=== PATIENT | female | born 1950 | race Caucasian/White ===

== ENCOUNTER → 2017-09-29 | Outpatient (CLI) | payer MEDICARE, OTHER | END | disposition home or self-care (01) | LOC: GMAJ 11:21 | PROVIDERS: ATTEND Family Medicine | DX: I10 Essential (primary) hypertension (principal) ==

== ENCOUNTER → 2017-11-27 | Outpatient (CLI) | payer MEDICARE, OTHER ==
--- NOTE | 2017-11-29 17:45 | US ---
EXAM DESCRIPTION: Soft Tissue,Head/Neck CLINICAL HISTORY: 67 years Female, THYROID NODULE COMPARISON: None. FINDINGS: The right thyroid lobe measures 5.4 cm in length. It contains multiple solid or mixed solid and cystic nodules, the largest measuring up to 1.5 cm diameter. The thyroid isthmus is not thickened. The left thyroid lobe measures 4.9 cm in length. It contains several cystic and cystic/solid nodules, the largest measuring 7 or 8 mm diameter. IMPRESSION: Bilateral thyroid nodules as detailed above, largest measuring 1.5 cm diameter in the right thyroid lobe. Ultrasound-guided biopsy of this largest nodule should be considered. At a minimum, short-term follow-up ultrasound in 3-6 months is recommended to document stability. Electronically signed by: Frankie Velazquez MD 11/29/2017 5:43 PM CDT
== END ==
LOC: US 09:00
PROVIDERS: ATTEND Family Medicine
DX: E04.1 Nontoxic single thyroid nodule (principal)

== ENCOUNTER → 2020-02-02 | Outpatient (CLI) | payer MEDICARE, OTHER ==
--- NOTE | 2020-02-06 14:22 | MAM ---
EXAM DESCRIPTION: 3D Screening BILATERAL : Digital Mammography. CLINICAL HISTORY: 69 years Female SCREEN . No complaints. No personal or family history of breast cancer. Menarche age 13. Childbirth age 23. Menopause age 47. HRT 5 or more years ago. Benign right breast biopsy.. Lifetime risk of developing breast cancer (Tyrer-Cuzick model)(%): 5.2. COMPARISON: Baseline study at this facility. No prior reports available. TECHNIQUE: Bilateral CC and MLO projection full-field images, digital tomosynthesis mammographic technique. Bilateral digital 2-D full-field MLO images. CAD available for 2-D images. FINDINGS: The breast parenchymal density pattern is: Heterogeneously dense breast tissue, which may obscure small masses. No skin thickening or nipple retraction. Biopsy site marker upper outer quadrant posterior to middle third right breast. Solitary microcalcifications. Bilateral regions of focal asymmetry versus mass density: Right breast 10:00-11:00, 4 cm from the nipple. Left axilla 9:00 position abutting the chest wall. Not associated with microcalcifications. IMPRESSION: BI-RADS CATEGORY: 0 - INCOMPLETE- Need additional imaging evaluation. RECOMMENDATIONS: FOLLOW-UP: Recall for additional imaging: Bilateral full-field 2-D and tomosynthesis images LM projection. Directed bilateral breast ultrasound of the regions of interest.. Written communication concerning the IMPRESSION and Follow-up, will be mailed to the patient and referring health care provider. Electronically signed by: Saw Nguyen MD 02/06/2020 2:20 PM CDT
== END ==
LOC: MAMMO 08:00
PROVIDERS: ATTEND Family Medicine
DX: Z12.31 Encounter for screening mammogram for malignant neoplasm of breast (principal)

== ENCOUNTER 2020-02-03 05:29 | Day surgery (SDC) | payer MEDICARE, OTHER ==
[2020-02-03] MEDS ORDERED: LACTATED RINGERS 1,000 ML ONE (06:50)
[2020-02-03] MEDS ORDERED: LIDOCAINE 1% 10 ML VIAL INJ ONE (07:00)
[2020-02-03] MEDS ORDERED: PROPOFOL 200 MG/20 ML VIAL IV ONE (07:00)
[2020-02-03 08:43] VITALS: O2SAT 100
--- NOTE | 2020-02-03 10:53 | OP ---
DATE OF PROCEDURE: 02/03/20 PREOPERATIVE DIAGNOSIS: 1. Screening colonoscopy. POSTOPERATIVE DIAGNOSIS: 1. Colonic polyps. PROCEDURE: 1. Colonoscopy with forceps biopsy excision x4. a. Small, flat polyp in distal transverse colon. b. Flat polyp at approximately 20 cm. c. Rectal polyp at 10 cm, 2.5 mm. d. Anal polyp, 3 mm. SURGEON: Alfonso Washington MD ANESTHESIA: General. PROCEDURE: General anesthesia was induced. Digital rectal exam was normal. The colonoscope was then passed. There was minor looping in this very thin patient. This was taken care of with gentle pressure. We ultimately reached the cecum identified by the appendiceal orifice and ileocecal valve. Upon withdrawal, the cecum and ascending colon appeared normal and transverse colon was normal until the distal transverse colon we identified a flat appearing polyp, certainly not easy to see, but recognized, so it was excised. Upon further withdrawal, at 20 cm was a similar appearing flat polyp that was also excised. At 10 cm in the upper rectum, a more traditional polyp was seen, about 2.5 mm. This was completely excised. On retroflexion, a polyp about 1.5 cm in, possibly 2 cm, was excised as well. It was over 2.5 mm. Minor oozing from that, but no bleeding. The patient tolerated the procedure. We had desufflated the abdomen on withdrawal. She was awakened and taken to Recovery to be discharged. #[id number] cc: Alfonso Clarke MD [facility]
[2020-02-03 11:56] VITALS: BP 141/55; TEMP 97.3
== END 2020-02-03 11:45 | disposition home or self-care (01) ==
LOC: AMB 05:29
PROVIDERS: ATTEND Surgery
DX: Z12.11 Encounter for screening for malignant neoplasm of colon (principal); D12.3 Benign neoplasm of transverse colon; D12.6 Benign neoplasm of colon, unspecified; D12.9 Benign neoplasm of anus and anal canal; K62.1 Rectal polyp; F32.9 Major depressive disorder, single episode, unspecified; I10 Essential (primary) hypertension; M81.0 Age-related osteoporosis without current pathological fracture; Z86.010 Personal history of colon polyps; Z79.899 Other long term (current) drug therapy
CPT/HCPCS: 00812; 45380; 88305; J3490; J7120

== ENCOUNTER → 2020-02-20 | Outpatient (CLI) | payer MEDICARE, OTHER ==
--- NOTE | 2020-02-20 17:31 | MAM ---
EXAM DESCRIPTION: 3D Diagnostic, Bilateral (accession [id number]) digital mammography. Breast,Bilateral (accession [id number]): Ultrasound CLINICAL HISTORY: 69 yearsFemaleABNORMAL MAMMOGRAM . Focal asymmetry bilateral breast. Lifetime risk of developing breast cancer (Tyrer-Cuzick model)(%): Not calculated COMPARISON: Other TECHNIQUE: Bilateral LM projection full-field images, digital tomosynthesis technique. Bilateral 2-D digital full-field images: LM projection. CAD available for 2-D images.. Transcutaneous scanning of the bilateral breasts utilizing peacock-scale and Doppler modes. Scanning performed by the anchor tacker ; remote monitoring by Dr. Nguyen. FINDINGS: The breast parenchymal density pattern is: Heterogeneously dense breast tissue, which may obscure small masses. No skin thickening or nipple retraction focal asymmetry posterior left breast 6 cm from the nipple at 2:30-3:00. Focal asymmetry right breast 3 to 4 cm from the nipple 11:00-12:00. No focal asymmetry seen on the right. No suspicious microcalcifications bilaterally. Ultrasound: Scanning anterior upper outer quadrant right breast. Mostly dense fibroglandular tissue. Minimal fatty tissue. Specifically 4 cm from the nipple at 9:00: Multiple foci of fibroglandular tissues. No dominant solid mass, no distinct cyst, no fluid collection, no large calcifications. Scanning lateral left breast mid and posterior. Mixture of fatty and fibroglandular tissues. Scanning specifically 6 cm from the nipple at 3:00. Within the fibroglandular tissue is a hypoechoic region which has margins. Partially circumscribed. Dimensions are 9.3 x 6.5 mm. Not vascular. Possible fluid component. Wider than tall orientation. Mostly mild posterior shadowing. Complicated cyst versus fibroadenoma versus a reactive lymph node. IMPRESSION: BI-RADS CATEGORY: 3 - PROBABLY BENIGN. RECOMMENDATIONS: FOLLOW-UP: Short interval (6-month) diagnostic left breast digital tomosynthesis with directed left breast ultrasound.. The FINDINGS and the FOLLOW-UP plan were reviewed in person with the patient after the examination. Written communication explaining the IMPRESSION and FOLLOW-UP will be mailed to the patient and referring care provider. Electronically signed by: Saw Nguyen MD 02/20/2020 5:29 PM CDT
== END ==
LOC: MAMMO 12:48
PROVIDERS: ATTEND Family Medicine
DX: R92.8 Other abnormal and inconclusive findings on diagnostic imaging of breast (principal)
CPT/HCPCS: 76641; 77066; G0279

== ENCOUNTER → 2020-03-07 | Outpatient (CLI) | payer MEDICARE, OTHER | LOC: GMAJ 10:34 | PROVIDERS: ATTEND Family Medicine | DX: I10 Essential (primary) hypertension (principal) ==